=== PATIENT | male | born 1945 | race Caucasian/White ===

== ENCOUNTER → 2020-11-20 15:14 | Outpatient (BNVA) | payer MEDICARE, BC, SELFPAY | PROVIDERS: Family Provider Nurse Practitioner; PCP Nurse Practitioner; Visit Provider Family Medicine | DX: K92.1 Melena (principal) | CPT/HCPCS: 85025 ==

== ENCOUNTER → 2020-11-22 10:29 | Outpatient (BNVA) | payer BC, MEDICARE, SELFPAY | PROVIDERS: Family Provider Nurse Practitioner; PCP Nurse Practitioner; Visit Provider Family Medicine | DX: K92.1 Melena (principal) | CPT/HCPCS: G0328 ==

== ENCOUNTER → 2023-04-21 10:21 | Outpatient (BNVA) | payer OTHER, SELFPAY | PROVIDERS: Family Provider Nurse Practitioner; PCP Nurse Practitioner; Referring Provider Emergency Medicine Emergency Medical Services; Visit Provider Student in an Organized Health Care Education/Training Program | DX: M75.42 Impingement syndrome of left shoulder | CPT/HCPCS: 73030; 99203 ==

== ENCOUNTER 2023-04-28 06:00 | Outpatient (RCR) | payer OTHER, SELFPAY | END 2023-05-09 23:59 | disposition home or self-care (01) | LOC: WPT 06:00 | PROVIDERS: Visit Provider Student in an Organized Health Care Education/Training Program | DX: M75.42 Impingement syndrome of left shoulder (principal) | CPT/HCPCS: 97110; 97112; 97161; 97530 ==

== ENCOUNTER 2023-05-10 06:00 | Outpatient (RCR) | payer OTHER, SELFPAY | END 2023-06-09 23:59 | disposition home or self-care (01) | LOC: WPT 06:00 | PROVIDERS: Visit Provider Student in an Organized Health Care Education/Training Program | DX: M75.42 Impingement syndrome of left shoulder (principal) | CPT/HCPCS: 97110; 97530 ==

== ENCOUNTER → 2023-06-18 10:27 | Outpatient (BNVA) | payer OTHER, SELFPAY | PROVIDERS: Visit Provider Nurse Practitioner Family | DX: L57.0 Actinic keratosis (principal); L57.8 Other skin changes due to chronic exposure to nonionizing radiation; D22.5 Melanocytic nevi of trunk; L81.4 Other melanin hyperpigmentation | CPT/HCPCS: 17000; 99213 ==

== ENCOUNTER 2024-01-29 10:48 | Emergency (ER) | payer OTHER, SELFPAY ==
[2024-01-29 10:57] VITALS: BP 172/80; PULSE 70; RESP 16; TEMP 36.5; O2SAT 97
--- NOTE | 2024-01-29 11:04 | ECG_ITS ---
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 Measurements Intervals [place] Rate: 63 P: 70 IA: 202 QRS: 68 QRSD: 96 T: 67 QT: 411 QTc: 421 Interpretive Statements SINUS RHYTHM No previous ECG available for comparison Electronically Signed On 01-29-2024 13:44:02 CDT by Bebeto Smith M.D. [id number]
[2024-01-29 11:13] LABS: Glucose Point of Care 88 mg/dL (70-110)
--- NOTE | 2024-01-29 11:15 | XR_ITS ---
WS: [id number] Exam: XR chest 1V portable [id number] Date/Time of Exam: 01/29/2024 11:26 AM Reason For Exam: altered mental status No priors. The lungs are clear and fully expanded. Normal cardiomediastinal silhouette. Regional bony elements a ppear normal. Monitoring leads superimpose the chest. XR/XR chest 1V portable [id number] IMPRESSION: 1. Negative chest.
--- NOTE | 2024-01-29 11:15 | CTR_ITS ---
PROCEDURE INFORMATION: Exam: CT Head Without Contrast Exam date and time: 01/29/2024 11:27 AM Age: 78 years old Clinical indication: Dizziness and visual disturbance; Additional info: Diplopia TECHNIQUE: Imaging protocol: Computed tomography of the head without contrast. Radiation optimization: All CT scans at this facility use at least one of these dose optimization techniques: automated exposure control; mA and/or kV adjustment per patient size (includes targeted exams where dose is matched to clinical indication); or iterative reconstruction. COMPARISON: No relevant prior studies available. RADIATION DOSE METRICS: Total DLP (mGy-cm): 1110.28 FINDINGS: Brain: Mild areas of low-attenuation in the white matter most likely representing small vessel ischemic change. No evidence of mass effect, intracranial hemorrhage or extra-axial collection. No acute infarct. Cerebral ventricles: Ventricular size and configuration within normal limits for age. Paranasal sinuses: No significant pathology. Mastoid air cells: Mastoids are within normal limits. Orbital cavities: Orbits are within normal limits. Bones: Unremarkable. No acute fracture. Soft tissues: No significant pathology. CT/CT head wo con* [id number] IMPRESSION: No acute pathology.
--- NOTE | 2024-01-29 11:26 | ED_ITS ---
HPI - Dizziness 2 General: Chief Complaint: Dizziness Stated Complaint: [facility]--dizzy and double vision Time Seen by Provider: 01/29/24 11:13 History of Present Illness: HPI Narrative: 78 year old male presents to the ER with a chief complaint of patient having diplopia this been progressive getting worse with blurred vision over the last 8 weeks patient was sent in by the [place] [facility] for further assessment and management patient recently had an eye doctor appointment which reported to him he had a clear bill of health patient does not and report any ocular trauma reports not wearing eyeglasses or contacts he does have a history of uncontrolled high blood pressure and he just recently started on medications for patient reports no other focal neurodeficits or weakness or any other concerns. Patient does not endorse any recent infections or illnesses or any other associated symptoms. Patient was sent in by the [place] clinic for further stroke workup. Associated symptoms: Denies chest pain, chills, headache(s), malaise, nausea, palpitations or vomiting Review of Systems 2 General: Reports: 10 or more systems reviewed and unremarkable except in HPI and below Const: Denies: fever(s), chills, fatigue or malaise Eyes: Reports: change in vision, blurry vision and other (Diplopia the patient is visiting vertical no flashes of light no photophobi) Card: Denies: chest pain or palpitations Resp: Denies: dyspnea or productive cough GI: Denies: abdominal pain, nausea or vomiting : Denies: flank pain Musc: Denies: extremity pain or extremity swelling Skin/Breast: Denies: rash or pruritus Neuro: Denies: headache(s) Psych: Denies: anxiety or depression Victor M/Lymph: Denies: easy bleeding All/Imm: Denies: urticaria, throat swelling or facial swelling PFSH ED 2 PFSH: Social History Smoking and tobacco/nicotine status: never used tobacco/nicotine Alcohol intake: current Alcohol intake frequency: few times a month Substance/Drug Use: never Physical Exam 2 Narrative: EXAM NARRATIVE: On physical exam I do not see any actual eye abnormality appreciated no horizontal or vertical nystagmus were read nystagmus appreciated extraocular muscles are intact bilateral pupils are equal reactive to light and accommodation appearing remainder patient's GCS is 15 with NIH of 0 no obvious focal neurodeficits appreciated Const: COMMON NORMALS: no acute distress, patient oriented x3 and healthy appearing HENMT: COMMON NORMALS: normocephalic and atraumatic HEAD & SCALP: n ormocephalic and atraumatic Eye: COMMON NORMALS: Equal, round and reactive pupils present and EOMs intact bilaterally PUPIL: Yes Equal, round and reactive pupils present Neck/C-Spine: COMMON NORMALS: full ROM, supple and no JVD Lymph: LYMPHATIC: no lymphadenopathy noted Chest: COMMONS NORMALS: normal inspection of the chest and normal palpation of entire chest wall Resp: COMMON NORMALS: normal respiratory effort, No retractions and clear to auscultation bilaterally EFFORT & INSPECTION: Yes able to speak in complete sentences and Yes symmetric chest movement AUSCULTATION: clear to auscultation bilaterally Cardio: COMMON NORMALS: no JVD, regular rate and regular rhythm RATE: r egular rate RHYTHM: regular rhythm GI: COMMON NORMALS: Normal to inspection, nondistended, normoactive bowel sounds present, Soft to palpation and non-tender INSPECTION: Yes normal to inspection PALPATION: Yes Soft to palpation : COMMON NORMALS: Yes no CVA tenderness BLADDER/KIDNEY EXAM: Yes no CVA tenderness Back/Pelvis: COMMON NORMALS: no CVA tenderness Extremity: COMMON NORMALS: normal to inspection and full ROM Neuro: COMMON NORMALS: patient oriented x3, CN's II-XII intact bilaterally, moves all extremities and no focal motor deficits Psych: COMMON NORMALS: mental status grossly normal, Normal thought process present, cooperative and normal affect THOUGHT PROCESS: Normal thought process present Skin: COMMON NORMALS: no rashes or lesions noted GENERAL SKIN EXAM: no rashes or lesions noted Course 2 Vital Signs: Vital signs: Vital Signs Temperature 97.7 F 01/29/24 10:57 Pulse Rate 62 01/29/24 12:14 Respiratory Rate 14 01/29/24 12:14 Blood Pressure 145/79 01/29/24 12:14 Pulse Oximetry 96 01/29/24 12:14 Oxygen Delivery Me thod Room Air 01/29/24 12:14 MDM - Dizziness Medical Decision Making Due to patient's symptoms and condition lab work and imaging will be obtained including a CT of the head without contrast will continue to follow. . Patient's CAT scan of the brain came back unremarkable remainder lab work also came back unremarkable patient is stable for discharge home patient will be referred for an outpatient MRI and outpatient neurology referral by case management and long term care social worker. Advised patient of these findings and advised for further follow-up outpatient for further investigation of his vertical diplopia in which patient advised to return the interim if any of his symptoms persist or worse. Lab Data 01/29/24 11:15 01/29/24 11:15 Radiology Impressions Chest X-Ray 01/29/24 11:15 IMPRESSION: 1. Negative chest. Head CT 01/29/24 11:15 IMPRESSION: No acute pathology. Laboratory Results WBC 8.83 10^3/uL (3.29-11.43) 01/29/24 11:15 RBC 4.69 10^6/uL (3.85-5.65) 01/29/24 11:15 Hgb 14.90 g/dL (11.27-16.99) 01/29/24 11:15 Hct 44.8 % (37-53) 01/29/24 11:15 MCV 95.5 fl (82-101) 01/29/24 11:15 MCH 31.8 pg (27-33) 01/29/24 11:15 MCHC 33.3 g/dL (30-55) 01/29/24 11:15 RDW 12.3 % (12.1-15.1) 01/29/24 11:15 Plt Count 249 10^3/cmm (157-399) 01/29/24 11:15 MPV 8.8 fL (7.4-10.4) 01/29/24 11:15 Neut % (Auto) 63.8 % 01/29/24 11:15 Lymph % (Auto) 28.4 % 01/29/24 11:15 [place] % (Auto) 6.6 % 01/29/24 11:15 Eos % (Auto) 0.6 % 01/29/24 11:15 Baso % (Auto) 0.3 % 01/29/24 11:15 Neut # (Auto) 5.63 10^3/uL (1.8-7.7) 01/29/24 11:15 Lymph # (Auto) 2.5 10^3/uL (0.8-4.8) 01/29/24 11:15 [place] # (Auto) 0.6 10^3/uL (0.2-0.9) 01/29/24 11:15 Eos # (Auto) 0.1 10^3/uL (0.0-0.8) 01/29/24 11:15 Baso # (Auto) 0.0 10^3/uL (0.0-0.1) 01/29/24 11:15 Nucleated RBC % (auto) 0 % 01/29/24 11:15 Nucleated RBCs # 0.0 /100WBC 01/29/24 11:15 PT 12.90 SECONDS (12.1-14.9) 01/29/24 11:15 INR 0.95 (0.8-1.2) 01/29/24 11:15 Sodium 140 mmol/L (136-145) 01/29/24 11:15 Chloride 106 mmol/L (98-107) 01/29/24 11:15 Carbon Dioxide 23 mmol/L (22-29) 01/29/24 11:15 BUN 14 mg/dL (8-23) 01/29/24 11:15 Creatinine 0.9 mg/dL (0.7-1.2) 01/29/24 11:15 GFR Calculation Not Reportable 01/29/24 11:15 Glucose 92 mg/dL (65-115) 01/29/24 11:15 POC Glucose 88 mg/dL (70-110) 01/29/24 11:10 Calculated Osmolality 290 mOsm/kg (285-295) 01/29/24 11:15 Calcium 9.0 mg/dL (8.5-10.5) 01/29/24 11:15 Total Bilirubin 0.7 mg/dL (0.15-1.2) 01/29/24 11:15 AST 17 U/L (0-40) 01/29/24 11:15 ALT 14 U/L (0-41) 01/29/24 11:15 Alkaline Phosphatase 84 U/L (40-130) 01/29/24 11:15 Troponin T Baseline < 6 ng/L (0-15) 01/29/24 11:15 C-Reactive Protein 3.0 mg/L (0.0-4.9) 01/29/24 11:15 NT-Pro-B Natriuret Pep 78 pg/mL (0-450) 01/29/24 11:15 Total Protein 7.1 g/dL (6.6-8.7) 01/29/24 11:15 Albumin 4.4 g/dL (3.5-5.2) 01/29/24 11:15 Globulin 2.7 g/dL (1.3-4.6) 01/29/24 11:15 Urine Color Yellow (Yellow) 01/29/24 11:15 Urine Appearance Clear (CLEAR) 01/29/24 11:15 Urine pH 6.5 (5-7) 01/29/24 11:15 Ur Specific [place] 1.015 (1.005-1.030) 01/29/24 11:15 Urine Protein Neg (Negative) 01/29/24 11:15 Urine Glucose (UA) Norm (Normal) 01/29/24 11:15 Urine Ketones Negative (Negative) 01/29/24 11:15 Urine Blood Neg (Negative) 01/29/24 11:15 Urine Nitrate Negative (Negative) 01/29/24 11:15 Urine Bilirubin Neg (Negative) 01/29/24 11:15 Urine Urobilinogen Norm mg/dL (Negative) 01/29/24 11:15 Ur Leukocyte Esterase Negative (Negative) 01/29/24 11:15 All radiology interpretation(s) finalized by discharge ED provider radiology interpretation(s): Unremarkable per radiologist Discharge Plan Discharge Patient Disposition: Home Clinical Impression: Diplopia Condition: Stable Prescriptions: No Action naproxen 375 mg tablet 375 mg PO BID PRN losartan 50 mg tablet 50 mg PO DAILY Qty: 90 0RF Discharge Orders: Discharge ED (Routine); Ordered 01/29/24 Ordered By: Jaylan Hollingsworth Referrals: Tuyet London MD [Physician] - 4-7 days (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 Today's lab work and imaging is come back inconclusive that was contributing to your double vision that you are having. Imaging today did not reveal any obvious strokes or any obvious lesions or masses. However additional information will need to be obtained through MRI for further investigation on this matter. 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
[2024-01-29 11:28] LABS: Basophils % 0.3 %; Eosinophils # 0.1 10^3/uL (0.0-0.8); Eosinophils % 0.6 %; Hematocrit 44.8 % (37-53); Lymphocytes # 2.5 10^3/uL (0.8-4.8); Lymphocytes % 28.4 %; Mean Corpuscular HGB Conc 33.3 g/dL (30-55); Mean Corpuscular Hemoglobin 31.8 pg (27-33); Mean Corpuscular Volume 95.5 fl (82-101); Mean Platelet Volume 8.8 fL (7.4-10.4); Monocytes # 0.6 10^3/uL (0.2-0.9); Monocytes % 6.6 %; Neutrophils # 5.63 10^3/uL (1.8-7.7); Neutrophils % 63.8 %; Nucleated Red Blood Cells % 0 %; Platelet Count 249 10^3/cmm (157-399); Red Blood Count 4.69 10^6/uL (3.85-5.65); Red Cell Distribution Width 12.3 % (12.1-15.1); White Blood Count 8.83 10^3/uL (3.29-11.43)
[2024-01-29 11:38] LABS: Add Urine Microscopic? NO; Charge for UA Resulting for Rev
[2024-01-29 11:41] LABS: INR 0.95 (0.8-1.2)
[2024-01-29 11:42] LABS: Bilirubin Urine Neg (Negative); Blood Urine Neg (Negative); Glucose Urine UA Norm (Normal); Ketones Urine Negative (Negative); Leukocyte Esterase Urine Negative (Negative); Nitrate Urine Negative (Negative); Protein Urine Neg (Negative); Specific Gravity, Urine 1.015 (1.005-1.030); Urine Appearance Clear (CLEAR); Urine Color Yellow (Yellow); Urobilinogen Urine Norm (Negative); pH Urine 6.5 (5-7)
[2024-01-29 11:47] LABS: Troponin(5th) Baseline < 6 ng/L (0-15)
[2024-01-29 11:51] VITALS: BP 156/87; PULSE 65; RESP 17; O2SAT 94
[2024-01-29 11:55] LABS: Alanine Aminotransferase 14 U/L (0-41); Albumin Level 4.4 g/dL (3.5-5.2); Alkaline Phosphatase 84 U/L (40-130); Aspartate Amino Transferase 17 U/L (0-40); Blood Urea Nitrogen 14 mg/dL (8-23); Carbon Dioxide 23 mmol/L (22-29); Chloride 106 mmol/L (98-107); Creatinine Clr Calc Pharmacy 71.6976; Globulin 2.7 g/dL (1.3-4.6); Glucose 92 mg/dL (65-115); NT Pro B Type Natriuretic Pept 78 pg/mL (0-450); Osmolality Calculated 290 mOsm/kg (285-295); Sodium 140 mmol/L (136-145); Total Bilirubin 0.7 mg/dL (0.15-1.2); Total Protein 7.1 g/dL (6.6-8.7)
[2024-01-29] MEDS: sodium chloride 0.9% 500 ML IV (12:03)
--- NOTE | 2024-01-29 12:09 | DCPLANNER ---
messaged neurology for er f/u
[2024-01-29 12:14] VITALS: BP 145/79; PULSE 62; RESP 14; O2SAT 96
[2024-01-29 13:08] VITALS: BP 149/86; PULSE 63; RESP 16; O2SAT 95
== END 2024-01-29 13:15 | disposition home or self-care (01) ==
PROVIDERS: Emergency Provider Emergency Medicine; PCP Nurse Practitioner Family
DX: H53.2 Diplopia (principal)
CPT/HCPCS: 36416; 70450; 71045; 80053; 81003; 82962; 83880; 84484; 85025; 85610; 86140; 93005; 96360; 99285; J7040

== ENCOUNTER → 2024-06-21 09:24 | Outpatient (BNVA) | payer OTHER, SELFPAY | PROVIDERS: PCP Nurse Practitioner Family; Visit Provider Nurse Practitioner Family | DX: L57.8 Other skin changes due to chronic exposure to nonionizing radiation (principal); D22.5 Melanocytic nevi of trunk; L81.4 Other melanin hyperpigmentation; D18.01 Hemangioma of skin and subcutaneous tissue; L57.0 Actinic keratosis; D48.5 Neoplasm of uncertain behavior of skin; L82.1 Other seborrheic keratosis | CPT/HCPCS: 11102; 17000; 99213 ==

== ENCOUNTER → 2025-06-05 09:46 | Outpatient (BNVA) | payer OTHER, SELFPAY | PROVIDERS: PCP Nurse Practitioner Family; Visit Provider Specialist | DX: M17.0 Bilateral primary osteoarthritis of knee (principal) | CPT/HCPCS: 20610; 73560; 73565; 99204; 99214; J1100; J2795; J3301; J9999 ==

== ENCOUNTER → 2025-06-28 12:59 | Outpatient (BNVA) | payer OTHER, SELFPAY | PROVIDERS: PCP Nurse Practitioner Family; Visit Provider Nurse Practitioner Family | DX: L82.1 Other seborrheic keratosis (principal); D18.01 Hemangioma of skin and subcutaneous tissue; L57.8 Other skin changes due to chronic exposure to nonionizing radiation; L81.4 Other melanin hyperpigmentation; L57.0 Actinic keratosis | CPT/HCPCS: 17000; 99213 ==